=== PATIENT | female | born 1975 | race Caucasian/White ===

== ENCOUNTER 2020-02-25 19:12 | Emergency (ER) | payer SELFPAY ==
--- NOTE | 2020-02-25 | XR_ITS ---
EXAMINATION: XR CHEST CLINICAL INFORMATION: Chest pain, lower left COMPARISON: None TECHNIQUE: 2 views of the chest were obtained. FINDINGS: Lungs are clear. No focal consolidation or mass. Normal pulmonary vascularity. No pleural effusion or pneumothorax. Normal heart size. S-shaped thoracolumbar scoliosis. XR/XR chest 2V IMPRESSION: No acute pulmonary disease.
[2020-02-25 19:17] VITALS: BP 181/118; PULSE 94; RESP 16; TEMP 36.8; O2SAT 97; BMI 24.7
--- NOTE | 2020-02-25 19:22 | ECG_ITS ---
Test Reason : CHEST PRESSURE Blood Pressure : / mmHG Vent. Rate : 083 BPM Atrial Rate : 083 BPM P-R Int : 160 ms QRS Dur : 082 ms QT Int : 392 ms P-R-T Axes : 065 004 087 degrees QTc Int : 460 ms Normal sinus rhythm Possible Left atrial enlargement Possible Inferior infarct , age undetermined Abnormal ECG No previous ECGs available Referred By: Generic ED Physician Electronically Signed By:KARLEE HIGHTOWER MD
[2020-02-25 21:23] LABS: Eosinophils Absolute Auto 0.3 X10*3/uL (0.0-0.4); Eosinophils Percent Auto 2.9 % (0-4); MANUAL DIFF FLAG SCAN; PLT CLUMP 1; SCAN SMEAR FLAG 1
[2020-02-25 21:25] LABS: Basophils Absolute Auto 0.1 X10*3/uL (0.0-0.2); Basophils Percent Auto 0.8 % (0-2); Hematocrit 46.3 % (37-47); Hemoglobin 15.6 g/dl (12.0-16.0); Imm Gran Abs Auto 0.03 X10*3/uL (0.00-0.03); Imm Gran Pct Auto 0.3 % (0.0-0.4); Lymphocytes Absolute Auto 4.4 X10*3/uL (1.2-4.9); Mean Corpuscular HGB Conc 33.7 g/dl (31.0-35.0); Mean Corpuscular Hemoglobin 30.1 pg (27.0-33.0); Mean Corpuscular Volume 89.4 fL (80-98); Monocytes Absolute Auto 0.7 X10*3/uL (0.1-1.2); Neutrophils Absolute Auto 4.4 X10*3/uL (2.0-8.3); Red Blood Count 5.18 X10*6/uL (4.20-5.50); White Blood Count 9.9 X10*3/uL (4.8-10.8)
[2020-02-25 21:29] LABS: Mean Platelet Volume 10.5 fL (9.4-12.3); Platelet Count 232 X10*3/uL (160-400)
[2020-02-25 21:37] LABS: SLIDE REVIEW VERIFIED
[2020-02-25 21:46] LABS: Anion Gap 16 (12-20); Blood Urea Nitrogen 10 mg/dL (9-16); Calcium 9.2 mg/dL (8.4-10.2); Carbon Dioxide 26 mmol/L (22-29); Chloride 103 mmol/L (96-108); Creatinine Clr Calc Pharmacy 78.4; Estimated Glomerular Filt Rate > 60; Glucose Random 91 mg/dL (60-115); Potassium 4.1 mmol/l (3.3-5.1); Sodium 141 mmol/L (135-145)
[2020-02-25 21:55] LABS: Troponin-I High Sensitivity 9.4 ng/L (<3.5-17.0)
[2020-02-25 22:11] VITALS: BP 165/109; PULSE 80; RESP 16; TEMP 36.6; O2SAT 98
--- NOTE | 2020-02-25 22:58 | ED.CHESTPAIN ---
HPI - Chest Pain General Chief Complaint: Chest Pain Stated Complaint: chest pain Time Seen by Provider: 02/25/20 22:58 Related Data Allergies Allergy/AdvReac Type Severity Reaction Status Date / Time No Known Allergies Allergy Verified 02/25/20 19:16 Review of Systems Review of Systems: Constitutional: No Weight loss, No Fever, No Chills, No Night Sweats, No Fatigue, No Malaise ENT/Mouth: No Hearing loss, No Ear Pain, No Nasal Congestion, No Sinus Pain, No Hoarseness, No sore throat, No Rhinorrhea, No Swallowing Difficulty Eyes: No Eye Pain, No Swelling, No Redness, No Foreign Body, No Discharge, No Vision Changes Cardiovascular: pos Chest Pain, no SOB, no Dyspnea on Exertion, No Orthopnea, No Edema, No Palpitations Respiratory: No Cough, No Sputum, No Wheezing, No Smoke Exposure, No Dyspnea Gastrointestinal: no Nausea, No Vomiting, No Diarrhea, No abdominal Pain, No Hematochezia, No Melena Genitourinary: No irregular bleeding, No Dysuria, No Urinary Frequency, No Hematuria, No Urinary Incontinence, No Urgency, No Flank Pain, No Urinary Flow Changes, No Hesitancy Musculoskeletal: No joint pain, No Myalgias, No Joint Swelling Skin: No Skin Lesions, No rash Neuro: No Weakness, No Numbness, No Paresthesias, No Loss of Consciousness, No Dizziness, No Headache Psych: No Anxiety/Panic, No Depression, No SI/HI/AH/VH Heme/Lymph: No Bruising, No Bleeding,No Lymphadenopathy Endocrine: No Polyuria, No Polydipsia, No Temperature Intolerance Yes all other systems are reviewed and are negative [facility] Past Medical History Attestation statement: The following information was validated with the patient. Medical History (Updated 02/26/20 @ 02:36 by Naz Valdez NP) Hypertension Social History Social History Advance Directives: No Advance Directives Information Provided: Yes Physical Exam Vital Signs: Vital Signs: Last Vital Signs Temp 97.8 F 02/25/20 22:11 Pulse 82 02/26/20 01:04 Resp 16 02/26/20 01:04 BP 146/93 H 02/26/20 01:04 Pulse Ox 96 02/26/20 01:04 Body Mass Index 24.7 Appearance: Alert. Oriented X3. No acute distress. Eyes: Pupils equal, round and reactive to light. ENT: Pharynx normal. Neck: Normal inspection. Neck supple. CVS: Normal heart rate and rhythm. Pulses normal. Respiratory: No respiratory distress. Breath sounds normal. Abdomen: Soft and nontender. Skin: Skin warm and dry. Normal skin color. Normal skin turgor. Extremities: No lower extremity edema. Neuro: No motor deficit. No sensory deficit. Course Course Course Narrative: 44-year-old female with tobacco dependence and hypertension, presents with an episode of left-sided chest pain under the breast. This pain occurred while she was resting, felt like pressure, and lasted several minutes. She does have hypertension is noncompliant with her medications. She does not use any illicit drugs, does not have any prior history of cardiac events, no family history of cardiac events, no congenital heart defects, or any other concerning symptoms. Plan of care is to rule out ACS. First troponin 9.4, we will repeat 2nd. Second troponin 7.6. Detailed discussion regarding plan of care to follow up with her primary care physician for outpatient cardiac stress test or wood treating inspector. Referral made to Dr. Kaur. Highly unlikely that this is ACS at this time. Patient verbalized understanding of and agrees to plan of care discharge home. MDM - Chest Pain Differential Diagnosis Differential diagnosis: Likely fracture of rib, stable angina, atypical chest pain, st elevation myocardial infarction, costochondritis and chest pain Medical Records Data Attestation: I reviewed the patient's medical records. Lab Data Attestation: I reviewed the patient's lab results. Result diagrams: 02/25/20 21:12 02/25/20 21:12 Labs: Lab Results 02/25/20 02/25/20 02/25/20 Range/Units 21:12 21:12 21:12 WBC 9.9 (4.8-10.8) X10*3/uL RBC 5.18 (4.20-5.50) X10*6/uL Hgb 15.6 (12.0-16.0) g/dl Hct 46.3 (37-47) % MCV 89.4 (80-98) fL MCH 30.1 (27.0-33.0) pg MCHC 33.7 (31.0-35.0) g/dl RDW 13.0 (11.0-16.0) % Plt Count 232 (160-400) X10*3/uL MPV 10.5 (9.4-12.3) fL Immature Gran % (Auto) 0.3 (0.0-0.4) % Neut % (Auto) 45.0 (45-73) % Lymph % (Auto) 44.0 H (20-40) % [place] % (Auto) 7.0 (2-11) % Eos % (Auto) 2.9 (0-4) % Baso % (Auto) 0.8 (0-2) % Lymph # (Auto) 4.4 (1.2-4.9) X10*3/uL [place] # (Auto) 0.7 (0.1-1.2) X10*3/uL Eos # (Auto) 0.3 (0.0-0.4) X10*3/uL Baso # (Auto) 0.1 (0.0-0.2) X10*3/uL Abs Immat Gran (auto) 0.03 (0.00-0.03) X10*3/uL Absolute Neuts (auto) 4.4 (2.0-8.3) X10*3/uL Absolute Nucleated RBC 0.000 (0.0-0.012) X10*3/uL Nucleated RBC % (auto) 0.0 (0.0-0.2) /100WBC Smear Tech's Comments VERIFIED Hold Blue Top SEE NOTE Sodium 141 (135-145) mmol/L Potassium 4.1 (3.3-5.1) mmol/l Chloride 103 (96-108) mmol/L Carbon Dioxide 26 (22-29) mmol/L Anion Gap 16 (12-20) BUN 10 (9-16) mg/dL Creatinine 0.83 (0.5-1.4) mg/dL Estim Creat Clear Calc 78.4 Estimated GFR > 60 Random Glucose 91 (60-115) mg/dL Calcium 9.2 (8.4-10.2) mg/dL Troponin I High Sens (<3.5-17.0) ng/L 02/25/20 02/25/20 Range/Units 21:12 23:02 WBC (4.8-10.8) X10*3/uL RBC (4.20-5.50) X10*6/uL Hgb (12.0-16.0) g/dl Hct (37-47) % MCV (80-98) fL MCH (27.0-33.0) pg MCHC (31.0-35.0) g/dl RDW (11.0-16.0) % Plt Count (160-400) X10*3/uL MPV (9.4-12.3) fL Immature Gran % (Auto) (0.0-0.4) % Neut % (Auto) (45-73) % Lymph % (Auto) (20-40) % [place] % (Auto) (2-11) % Eos % (Auto) (0-4) % Baso % (Auto) (0-2) % Lymph # (Auto) (1.2-4.9) X10*3/uL [place] # (Auto) (0.1-1.2) X10*3/uL Eos # (Auto) (0.0-0.4) X10*3/uL Baso # (Auto) (0.0-0.2) X10*3/uL Abs Immat Gran (auto) (0.00-0.03) X10*3/uL Absolute Neuts (auto) (2.0-8.3) X10*3/uL Absolute Nucleated RBC (0.0-0.012) X10*3/uL Nucleated RBC % (auto) (0.0-0.2) /100WBC Smear Tech's Comments Hold Blue Top Sodium (135-145) mmol/L Potassium (3.3-5.1) mmol/l Chloride (96-108) mmol/L Carbon Dioxide (22-29) mmol/L Anion Gap (12-20) BUN (9-16) mg/dL Creatinine (0.5-1.4) mg/dL Estim Creat Clear Calc Estimated GFR Random Glucose (60-115) mg/dL Calcium (8.4-10.2) mg/dL Troponin I High Sens 9.4 7.6 (<3.5-17.0) ng/L Imaging Data Chest x-ray: Attestation: I personally reviewed and interpreted this imaging study as follows: Radiologist's impression: EXAMINATION: XR CHEST CLINICAL INFORMATION: Chest pain, lower left COMPARISON: None TECHNIQUE: 2 views of the chest were obtained. FINDINGS: Lungs are clear. No focal consolidation or mass. Normal pulmonary vascularity. No pleural effusion or pneumothorax. Normal heart size. S-shaped thoracolumbar scoliosis. XR/XR chest 2V IMPRESSION: No acute pulmonary disease. ECG Data ECG #1: Attestation: I personally reviewed and interpreted this ECG as follows: ECG interpretation date: 02/25/20 ECG interpretation time: 19:23 Prior ECG tracings: not available for review Interpretation: Ventricular rate 83, [place] 160, QRS 82, QT 392, QTC 460, normal sinus rhythm, possible left atrial enlargement, possible inferior infarct age undetermined, abnormal EKG, prior EKGs not available secondary to system 130 error Scores Heart Score History: -1- moderately suspicious ECG: -1- non specific repolarization disturbance Age: -0- < or = 45 Risk factory: -1- 1 or 2 risk factors Troponin: -0- < or = normal limit Score: 3 Risk: 1.7% Discharge Plan Discharge Clinical Impression: Atypical chest pain Chest pain Qualifiers: Chest pain type: unspecified Qualified Code(s): R07.9 - Chest pain, unspecified Patient Disposition: Home, Self-Care Instructions: Chest Pain (ED) Additional Instructions: You were evaluated for left-sided chest pain. Your EKG is normal sinus rhythm with left atrial enlargement. Your 1st troponin was 9.4, her 2nd troponin was 7. Please follow-up with your primary care physician as you may need a stress test for further evaluation. You may also call Cardiology and ask for an outpatient appointment. Thank you for choosing this emergency department for evaluation. Please follow-up with primary care physician as needed. Return to the emergency department for any new, concerning, or worsening symptoms. Referrals: Ayaan Kaur MD [Physician] - 2 days (Left-sided chest pain) Stand Alone Forms: Work/School Release
[2020-02-25 23:43] LABS: Troponin-I High Sensitivity 7.6 ng/L (<3.5-17.0)
[2020-02-26 01:04] VITALS: BP 146/93; PULSE 82; RESP 16; O2SAT 96
--- NOTE | 2020-02-26 01:23 | PC.NURSE ---
pt denies any pain/complaints at this time. Pt alert, respirations easy, n/l. skin w/d. Pt awaiting for further orders. Will continue to monitor pt.
== END 2020-02-26 03:10 | disposition home or self-care (01) ==
PROVIDERS: Nurse Practitioner Family; Emergency Provider Emergency Medicine
DX: R07.89 Other chest pain (principal); I10 Essential (primary) hypertension
CPT/HCPCS: 36415; 71046; 80048; 84484; 85025; 93005; 99283; 99284